=== PATIENT | male | born 1970 | race African-American/Black ===

== ENCOUNTER → 2017-02-24 12:55 | Outpatient (CLI) | payer MEDICARE ==
[2014-08-18 20:15] VITALS: BMI 24.1
[~2017-02-24 12:55] MED LIST: BACTRIM DS TABL1 TAB PO; BAYER CHEWABLE81 MG PO; DILAUDID8 MG PO; HYDROCODONE-APA1 TAB PO; MILK THISTLE140 MG PO; NICODERM C1 PATCH .3 TD; VITAMIN B-121000 MCG PO; ZANTAC150 MG PO
== END | disposition home or self-care (01) ==
LOC: D.MRI 01-30 13:00
DX: M54.16 Radiculopathy, lumbar region (principal)